=== PATIENT | female | born 1965 | race Caucasian/White ===

== ENCOUNTER → 2022-09-08 | Outpatient (CLI) | payer MEDICAID, SELFPAY ==
[2022-09-08 12:06] LABS: Absolute Lymphocyte Count 1.66 X10^3/uL (0.83-4.51); Absolute Neutrophil Count 5.4 X10^3/uL (2.0-7.7); Basophil# 0.06 X10^3/uL; Basophil% 0.7 % (0-1); Eosinophil# 0.27 X10^3/uL; Eosinophils% 3.4 % (0-5); Hematocrit 43.6 % (37-47); Hemoglobin 14.5 g/dL (12.0-15.0); Lymphocyte # 1.66 X10^3/ul (0.83-4.51); Lymphocyte % 20.7 % (19-41); Mean Corp Hgb Conc 33.3 g/dL (32-36); Mean Corpuscular Hgb 32.7 pg (27.0-32.0); Mean Corpuscular Volume 98.2 fL (81-99); Mean Platelet Vol. 10.5 fl (6.2-12.0); Monocyte% 7.5 % (0-10); NRBC Flagged by Analyzer 0 % (0-5); Neutrophil % 67.3 % (47-70); Platelet Count 270 K/mm3 (150-450); RBC Distribution Width CV 12.1 % (11.6-14.6); RBC Distribution Width SD 43.8 fl (35.1-43.9); Red Blood Count 4.44 M/mm3 (4.2-5.4)
[2022-09-08 12:22] LABS: Vitamin D,25 Hydroxy 32.8 ng/mL
[2022-09-08 12:41] LABS: ALB/GLOB Ratio 0.9 RATIO (0.9-2.4); AST(SGOT) 13 U/L (15-37); Alanine Aminotransfer ALT/SGPT 21 U/L (13-56); Albumin, Serum 3.1 g/dL (3.2-5.0); Alkaline Phosphatase 84 U/L (45-117); Anion Gap 9 (5-15); BUN 15 mg/dL (7-18); BUN/Creat Ratio 21.4 RATIO (10-20); Calcium,Total 8.9 mg/dL (8.5-10.1); Chloride 108 mmol/L (98-107); EST Glomerular Filtration Rate 91 mL/min (>60); Est Glom Filt Rate - Afr Amer 110 mL/min (>60); Globulin 3.6 g/dL (2.2-4.2); Glucose 105 mg/dL (74-106); Potassium 3.9 mmol/L (3.5-5.1); Protein, Total 6.7 g/dL (6.4-8.2); Sodium Level 144 mmol/L (136-145); Thyroid Stim Hormone (TSH) 1.29 uIU/mL (0.358-3.74)
== END | disposition home or self-care (01) ==
LOC: BIMLAB 09:08
PROVIDERS: PCP Internal Medicine; Referring Provider Internal Medicine; Visit Provider Internal Medicine
DX: R53.81 Other malaise (principal); R53.83 Other fatigue; Z13.29 Encounter for screening for other suspected endocrine disorder; Z13.21 Encounter for screening for nutritional disorder
CPT/HCPCS: 36415; 80053; 82306; 84439; 84443; 85025

== ENCOUNTER → 2023-01-08 | Outpatient (CLI) | payer MEDICAID, SELFPAY ==
--- NOTE | 2023-01-08 09:16 | US_ITS ---
INDICATION: general abd pain EXAMINATION: Ultrasound US Abdomen Complete TECHNIQUE: Hoskins-scale and color Doppler imaging was performed of the abdomen. COMPARISON: None. FINDINGS: LIVER: There is mildly increased echotexture. Echotexture. No focal hepatic lesion. No intrahepatic biliary ductal dilatation. There is no free fluid. GALLBLADDER AND BILIARY TREE: No shadowing gallstone, pericholecystic fluid or gallbladder wall thickening is demonstrated. The proximal common bile duct measures 3 mm, which is within normal limits for the patient''s age. SONOGRAPHIC EVANS''S SIGN: Negative. PANCREAS: No focal abnormality is demonstrated in the pancreas. No pancreatic ductal dilatation. SPLEEN: The spleen is normal in size and homogeneous in echotexture. KIDNEYS: There is no hydronephrosis. No shadowing calculus, focal lesion, or perinephric collection is demonstrated. VESSELS: Submitted longitudinal images of the intra-abdominal aorta demonstrate no gross abnormalities and are unremarkable. The IVC is patent. US/Abdomen Complete IMPRESSION: Fatty liver. Mild hepatomegaly. Electronically Signed: Bill Saldaña MD, SHABNAM at 18:28 EDT ,
[2023-01-08 10:23] LABS: Absolute Neutrophil Count 4.3 X10^3/uL (2.0-7.7); Basophil# 0.06 X10^3/uL; Basophil% 0.9 % (0-1); Eosinophil# 0.29 X10^3/uL; Eosinophils% 4.4 % (0-5); Hematocrit 44.7 % (37-47); Hemoglobin 14.7 g/dL (12.0-15.0); Mean Corp Hgb Conc 32.9 g/dL (32-36); Mean Corpuscular Hgb 31.5 pg (27.0-32.0); Mean Corpuscular Volume 95.7 fL (81-99); Mean Platelet Vol. 9.7 fl (6.2-12.0); Monocyte# 0.37 X10^3/uL; Monocyte% 5.7 % (0-10); NRBC Flagged by Analyzer 0 % (0-5); Neutrophil # 4.27 X10^3/uL (2.7-7.7); Neutrophil % 65.5 % (47-70); Platelet Count 286 K/mm3 (150-450); RBC Distribution Width CV 12.5 % (11.6-14.6); RBC Distribution Width SD 44.2 fl (35.1-43.9); Red Blood Count 4.67 M/mm3 (4.2-5.4); White Blood Count 6.5 K/mm3 (4.4-11.0)
[2023-01-08 10:40] LABS: Erythrocyte Sedimentation Rate 4 mm/hr (0-30)
[2023-01-08 10:58] LABS: ALB/GLOB Ratio 0.9 RATIO (0.9-2.4); AST(SGOT) 16 U/L (15-37); Alanine Aminotransfer ALT/SGPT 19 U/L (13-56); Albumin, Serum 3.4 g/dL (3.2-5.0); Alkaline Phosphatase 114 U/L (45-117); Anion Gap 5 (5-15); BUN 15 mg/dL (7-18); BUN/Creat Ratio 24.2 RATIO (10-20); CRP < 2.90 mg/L (0.0-3.0); Calcium,Total 8.9 mg/dL (8.5-10.1); Chloride 108 mmol/L (98-107); Creatinine, Serum 0.62 mg/dL (0.55-1.02); EST Glomerular Filtration Rate 105 mL/min (>60); Est Glom Filt Rate - Afr Amer 127 mL/min (>60); Globulin 3.6 g/dL (2.2-4.2); Glucose 109 mg/dL (74-106); LDH 165 U/L (84-246); Potassium 3.9 mmol/L (3.5-5.1); Sodium Level 140 mmol/L (136-145)
[2023-01-09 15:08] LABS: Endomysial Antibody IgA Negative (Negative); Immunoglobulin A 166 mg/dL (87-352); t-Transglutaminase IgA <2 U/mL (0-3)
[2023-01-09 16:09] LABS: Anti-Centromere B Ab <0.2 AI (0.0-0.9); Anti-Chromatin <0.2 AI (0.0-0.9); Anti-Jo <0.2 AI (0.0-0.9); Anti-Scleroderma-70 AB <0.2 AI (0.0-0.9); Anti-dsDNA Ab <1 IU/mL (0-9); RNP Ab 0.4 AI (0.0-0.9); SJOGREN'S Anti-SS-A test < 0.2 AI (0.0-0.9); SJOGREN'S Anti-SS-B test < 0.2 AI (0.0-0.9); Smith Ab <0.2 AI (0.0-0.9)
[2023-01-14 20:08] LABS: Albumin 3.7 g/dL (2.9-4.4); Alpha-1-Globulins 0.2 g/dL (0.0-0.4); Alpha-2-Globulins 0.8 g/dL (0.4-1.0); Cytoplasmic Ab (C-ANCA) <1:20 titer (Neg:<1:20); Gamma Globulin 0.8 g/dL (0.4-1.8); Immunoglobulin A 168 mg/dL (87-352); Immunoglobulin E 27 IU/mL (6-495); Immunoglobulin G 816 mg/dL (586-1602); Immunoglobulin M 100 mg/dL (26-217); PROEL- TOTAL PROTEIN 6.7 g/dL (6.0-8.5); Perinuclear Ab (P-ANCA) <1:20 titer (Neg:<1:20)
== END | disposition home or self-care (01) ==
PROVIDERS: PCP Internal Medicine; Referring Provider Internal Medicine Gastroenterology; Visit Provider Internal Medicine Gastroenterology
DX: R10.9 Unspecified abdominal pain (principal)
CPT/HCPCS: 36415; 76700; 80053; 82784; 82785; 83516; 83615; 84165; 85025; 85652; 86140; 86225; 86235; 86255; 86256; 86334

== ENCOUNTER → 2023-02-04 | Outpatient (CLI) | payer MEDICAID, SELFPAY ==
--- NOTE | 2023-02-04 08:42 | US_ITS ---
STUDY: ABDOMINAL ULTRASOUND - ELASTOGRAPHY REASON FOR VISIT: Female, 57 years old. Fatty infiltration of the liver. TECHNIQUE: Liver stiffness measurements were obtained on a Pow[employer] Peak RS 85 ultrasound machine using a CA 1-7 probe following the SRU guidelines. 3 measurements were obtained using a 2-D-SWE method. TheIQR/M was 22% suggesting a quality data set. TECHNICAL QUALITY: Adequate. COMPARISON: Comparison is made with prior study dated January 08, 2023. FINDINGS: Liver: There is no demonstrated mass lesion. Median liver stiffness measured 6.8 kPa. Abdomen: There is no demonstrated mass lesion. US/Elastography Parenchyma/Organ IMPRESSION: Liver stiffness measures 6.8 kPa compatible with F2-F3 (Mild to moderate liver fibrosis) Metavir score. Electronically Signed: Randolph Shields MD at 9:59 EDT ,
[2023-02-04 11:19] LABS: Erythrocyte Sedimentation Rate 4 mm/hr (0-30)
[2023-02-04 11:50] LABS: CRP < 2.90 mg/L (0.0-3.0)
[2023-02-05 14:10] LABS: Anti-Mitochondrial AB <20.0 Units (0.0-20.0)
[2023-02-07 18:07] LABS: AFP, Tumor Marker 8.4 ng/mL (0.0-9.2); Anti-Smooth Muscle ABS 9 Units (0-19); Ceruloplasmin 28.4 mg/dL (19.0-39.0); Copper, Serum or Plasma 128 ug/dL (80-158)
== END | disposition home or self-care (01) ==
LOC: US 08:41
PROVIDERS: PCP Internal Medicine; Referring Provider Internal Medicine Gastroenterology; Visit Provider Internal Medicine Gastroenterology
DX: K76.0 Fatty (change of) liver, not elsewhere classified (principal)
CPT/HCPCS: 36415; 76981; 82105; 82390; 82525; 83516; 85652; 86140

== ENCOUNTER 2023-03-12 06:23 | Day surgery (SDC) | payer MEDICAID, SELFPAY ==
[2023-03-12] VITALS (7 sets, daily range): BP systolic 102–144; BP diastolic 52–80; PULSE 76–87; RESP 16–18; TEMP 36.1–36.7; O2SAT 97–100; BMI 21.0
[2023-03-12] MEDS: Lactated Ringers 1,000 ML 15 ML IV (07:04)
--- NOTE | 2023-03-12 07:13 | HP.PCM_ITS ---
History and Physical Date of Admission: 03/12/23 7 F who presents to the office today for PCP OV 1.16.23 noting abdominal discomfort with morning watery BM and new presence of blood. Additionally, notes increased stress caring for grandchildren and parents and having a reduction in sleep each night; PHQ-9 scored at moderate/severe depression, start sertraline. ? Biochemical CBC, CMP (albumin L3.1), Vit D25, T4, TSH without pertinent abnormality. *BGI established 5.5.23 Reports that symptoms at PCP visit were intermittently presenting for approximately a year. Since PCP visit symtpoms have spontaneously resolved. She is due for colonoscopy. ROS Const Constitutional: Positive for fatigue and sleep problems; No anorexia, body ache, excessive sweating, fever(s), frequent falls, headache(s) or abnormal sleep pattern Eyes Eyes: No double vision, irritation, discharge, vision loss, dry eyes, bulging eyes, Light sensitivity, spots in vision or tunnel vision ENT ENT: No ear discharge, hearing loss, tinnitus, dizziness/vertigo, balance problems, sinus pressure, nasal discharge, post nasal drip, headache(s), difficulty swallowing, tongue swelling or throat swelling Resp Respiratory: No change in phlegm color, excessive phlegm production, hemoptysis, pain on inspiration or wheezing Cardio Cardiology: No leg pain with exertion, excessive sweating, shortness of breath, dyspnea on exertion, irregular heart rhythm, lightheadedness or radiating jaw, neck or arm pain Gastro GI: Positive for abdominal pain (daily); No change in stool character, coffee ground emesis, constipation, difficulty swallowing, feeling full early, excessive flatus or incontinent of stools Genitourinary-Female: No painful urination, urinary incontinence, urinary frequency, urinary urgency, urinary hesitancy, blood in urine, Frequent nighttime urination/ nocturia, post void dribbling or suprapubic fullness Musc Musculoskeletal: No back pain, deformity, joint swelling, limited range of motion, loss of height, radiating pain into limb or leg pain with exertion Skin Skin: No change in hair, nail changes, change in skin color, redness, excessive hair growth, yellowing of the eye, sores or skin swelling Breast Breast: No breast skin changes, breast swelling or nipple discharge Neuro Neurology: No abnormal speech, behavioral changes, confusion, unsteady gait/balance, frequent falls, headache(s), lack of coordination or memory loss Psych Psychiatric: No abnormal sleep pattern, Positive for anxiety, No behavioral changes, No confusion, Positive for depression, No memory loss, No mood swings and No panic attacks Endo Endocrine: Positive for fatigue; No excessive sweating, flushing, heat intolerance or increased thirst/drinking Aller/Imm Allergy/Immunologic: No seasonal allergy symptoms, throat swelling, tongue swelling, hives or wheezing Chris/Lymp Hematologic/Lymphatic: No easy bleeding, easy bruising or enlarged lymph nodes Exam Const General: cooperative, comfortable and no acute distress Orientation: alert, awake and oriented x3 HENMT Head: normal to inspection, normocephalic and atraumatic Ears: hearing grossly normal bilaterally Eyes General: appearance normal, both eyes and all related structures Resp Effort & Inspection: normal respiratory effort and able to speak in complete sentences Auscultation: Bilateral: Clear to Auscultation Cardio Rate: regular rate Rhythm: regular rhythm Heart Sounds: S1 normal and S2 normal GI Palpation: soft (Nontender, no palpable organomegaly) Neuro General: patient alert, patient awake, patient oriented x3, moves all extremities and CN's II-XI intact bilaterally Extrem General: no clubbing, cyanosis or edema Psych Appearance: grossly normal Mental Status: mental status grossly normal Mood: congruent mood Affect: normal affect Quality Reporting Tobacco Screening ([facility]) Smoking Status: Current every day smoker Assessment and Plan Assessment and Plan (1) Abdominal discomfort: Status: Chronic Plan: Her abdominal discomfort is mostly with food. She does have problems with intermittent constipation which could be secondary to diverticular disease. She said that her sisters have all had her gallbladders taken out. I will get an ultrasound of the right upper quadrant to look at her gallbladder. She may need a gastric emptying study or another functional study in the future. Also she may need upper endoscopy to evaluate her upper GI tract. (2) Encounter for screening for malignant neoplasm of colon: Status: Chronic Plan: She will undergo screening colonoscopy. She does have some intermittent lower GI bleeding and the differential diagnosis does include hemorrhoidal disease, anal fissure, diverticular disease, ulcerative proctitis. She was explained alternatives, risk, benefits including not withstanding bleeding, infection, sepsis, perforation, need for emergent surgery . She will get blood work and further recommendations that she undergoes colonoscopy. Orders: Orders Comprehensive Metabolic Profil Today R10.9 - Unspecified abdominal pain CRP Today R10.9 - Unspecified abdominal pain LDH Today R10.9 - Unspecified abdominal pain CBC W/Diff, Automated Today R10.9 - Unspecified abdominal pain Erythrocyte Sed Rate Today R10.9 - Unspecified abdominal pain BARBARA Comprehensive Panel Today R10.9 - Unspecified abdominal pain ANCA Today R10.9 - Unspecified abdominal pain Celiac Disease Profile Today R10.9 - Unspecified abdominal pain Immunoglobulins G/A/M/E Today R10.9 - Unspecified abdominal pain MODESTA + Protein Elect, Serum Today R10.9 - Unspecified abdominal pain Miscellaneous Lab Procedure Today R10.9 - Unspecified abdominal pain Abdomen Complete Today R10.9 - Unspecified abdominal pain I have examined the patient and the H&P has been reviewed. There are no clinical changes since date of exam.
--- NOTE | 2023-03-12 07:45 | COLBX_PTH ---
PATIENT: ALFREDO CORNEJO LOC: EN U#:[id number] AGE/SX: 57/F ROOM: RE03/12/[address]: Dr. Gerardo Loomis DO : 1965 BED: DIS: 03/12/2023 SPEC #: [id number] RECD: 03/12/23 10:42 STATUS: TR REJesusita #: [id number] LISBET: 03/12/23 07:[address]: Gerardo Loomis DEPT: SURGICAL PATHOLOGY RECD BY: Zahira Espana ENTERED: 03/12/23 11:52 SP TYPE: COLON BX CASSANDRA DR: Dr. Dylon Narvaez MD Tissues: A - Ileum, NOS B - COLON BIOPSY Procedures: Surgery Specimen Level IV HEADER OPERATION: Colonoscopy (MAC) PRE-OP DIAGNOSIS: Abdominal discomfort TISSUE SUBMITTED: A - Terminal ileum biopsy, B - Random colon biopsy MICROSCOPIC DIAGNOSIS A. Terminal ileum, biopsy: Fragments of small intestinal mucosa, no pathologic diagnosis. B. Colon, random biopsy: Fragments of colonic mucosa, no pathologic diagnosis. SJ:valdemar 03/13/2023 MICROSCOPIC DESCRIPTION Slides are reviewed. GROSS DESCRIPTION A - Received in fixative is one container labeled with the patient's name and designated terminal ileum biopsy. The specimen consists of two irregular fragments of light alvares soft tissue that in aggregate measure 0.6 x 0.5 x 0.1 cm. The specimen is totally submitted in one cassette. B - Received in fixative is one container labeled with the patient's name and designated random colon. The specimen consists of multiple irregular fragments of light alvares soft tissue that in aggregate measure 2.0 x 0.5 x 0.1 cm. The specimen is totally submitted in one cassette. / AM:valdemar 03/12/2023 TC:4 CPT: 61805 x2
--- NOTE | 2023-03-12 08:23 | OP.CCLET_ITS ---
03/12/2023 Dylon Narvaez MD [address] [place] [address] [place] [address] Re : Colonoscopy procedure for Vicky Anderson Dear Dr. Narvaez This procedure was performed on February. My impressions and recommendations are as follows: Impressions : - Hemorrhoids found on perianal exam. - Severe diverticulosis in the entire examined colon. There was narrowing of the colon in association with the diverticular opening. There was evidence of diverticular spasm. Erythema was seen in association with the diverticular opening. Lorelei-diverticular erythema was seen. There was evidence of an impacted diverticulum. Petechia were visualized in association with the diverticular opening. - Congested mucosa in the recto-sigmoid colon, in the sigmoid colon, in the descending colon and in the ascending colon. Biopsied. - The examined portion of the ileum was normal. Biopsied. Recommendations : - Discharge patient to home. - Resume previous diet. - Continue present medications. - Await pathology results. - Repeat colonoscopy in 5 years for surveillance. My findings are described in the full procedure note, which is enclosed. If I can be of further assistance, please feel free to contact me at . Sincerely, Gerardo Loomis, 03/12/2023 8:23:05 AM This report has been signed electronically.
--- NOTE | 2023-03-12 08:23 | OP.COLON_ITS ---
Patient Name: Vicky Anderson Procedure Date: 03/12/2023 7:46 AM Date of : 1965 Age: 57 Procedure: Colonoscopy Indications: Screening for colorectal malignant neoplasm Providers: Gerardo Loomis DO Referring MD: Gerardo Loomis DO Medicines: Monitored Anesthesia Care Patient Profile: This is a 57 year old female. Refer to note in patient chart for documentation of history and physical. Last Colonoscopy: several years ago. Complications: No immediate complications. Procedure: Pre-Anesthesia Assessment: - Prior to the procedure, a History and Physical was performed, and patient medications and allergies were reviewed. The patient is competent. The risks and benefits of the procedure and the sedation options and risks were discussed with the patient. All questions were answered and informed consent was obtained. Patient identification and proposed procedure were verified by the physician. Mental Status Examination: normal. CV Examination: normal. Prophylactic Antibiotics: The patient does not require prophylactic antibiotics. Prior Anticoagulants: The patient has taken no previous anticoagulant or antiplatelet agents. After reviewing the risks and benefits, the patient was deemed in satisfactory condition to undergo the procedure. The anesthesia plan was to use monitored anesthesia care (MAC). Immediately prior to administration of medications, the patient was re-assessed for adequacy to receive sedatives. The heart rate, respiratory rate, oxygen saturations, blood pressure, adequacy of pulmonary ventilation, and response to care were monitored throughout the procedure. The physical status of the patient was re-assessed after the procedure. After I obtained informed consent, the scope was passed under direct vision. Throughout the procedure, the patient's blood pressure, pulse, and oxygen saturations were monitored continuously. The pediatric colonoscope was introduced through the anus and advanced to the cecum, identified by appendiceal orifice and ileocecal valve. The colonoscopy was performed without difficulty. The patient tolerated the procedure well. The quality of the bowel preparation was adequate. Scope In: 7:52:31 AM Scope Withdrawal Time 0 hours 12 minutes 39 seconds Scope Out: 8:11:52 AM Total Procedure Duration Time 0 hours 19 minutes 21 seconds Findings: Hemorrhoids were found on perianal exam. Anusitis was also seen. Multiple small and large-mouthed diverticula were found in the entire colon. There was narrowing of the colon in association with the diverticular opening. There was evidence of diverticular spasm. Erythema was seen in association with the diverticular opening. Lorelei-diverticular erythema was seen. There was evidence of an impacted diverticulum. Petechia were visualized in association with the diverticular opening. An area of mildly congested mucosa was found in the recto-sigmoid colon, in the sigmoid colon, in the descending colon and in the ascending colon. Biopsies were taken with a cold forceps for histology. Verification of patient identification for the specimen was done. Estimated blood loss was minimal. The terminal ileum appeared normal. Biopsies were taken with a cold forceps for histology. Verification of patient identification for the specimen was done. Estimated blood loss was minimal. Impression: - Hemorrhoids found on perianal exam. - Severe diverticulosis in the entire examined colon. There was narrowing of the colon in association with the diverticular opening. There was evidence of diverticular spasm. Erythema was seen in association with the diverticular opening. Lorelei-diverticular erythema was seen. There was evidence of an impacted diverticulum. Petechia were visualized in association with the diverticular opening. - Congested mucosa in the recto-sigmoid colon, in the sigmoid colon, in the descending colon and in the ascending colon. Biopsied. - The examined portion of the ileum was normal. Biopsied. Recommendation: - Discharge patient to home. - Resume previous diet. - Continue present medications. - Await pathology results. - Repeat colonoscopy in 5 years for surveillance. Procedure Code(s): --- Professional --- 34608, Colonoscopy, flexible; with biopsy, single or multiple CPT copyright 2017 [employer]. All rights reserved. The codes documented in this report are preliminary and upon rope tow operator review may be revised to meet current compliance requirements. Gerardo Loomis DO 03/12/2023 8:23:05 AM This report has been signed electronically. Number of Addenda: 0 Note Initiated On: 03/12/2023 7:46 AM
== END 2023-03-12 08:57 | disposition home or self-care (01) ==
LOC: EN 06:24 → AC 06:24
PROVIDERS: PCP Internal Medicine; Referring Provider Internal Medicine; Visit Provider Internal Medicine Gastroenterology
PROC: 0DJD8ZZ Inspection of Lower Intestinal Tract, Via Natural or Artificial Opening Endoscopic (ICD-10-PCS; CPT 45378; principal; 2023-03-12 07:40)
DX: K57.30 Diverticulosis of large intestine without perforation or abscess without bleeding (principal); K64.9 Unspecified hemorrhoids; K63.89 Other specified diseases of intestine; F17.200 Nicotine dependence, unspecified, uncomplicated; F32.A Depression, unspecified; K76.0 Fatty (change of) liver, not elsewhere classified; M54.9 Dorsalgia, unspecified; G89.29 Other chronic pain; Z79.899 Other long term (current) drug therapy
CPT/HCPCS: 45380; 88305; J7120; J2405